=== PATIENT | male | born 1960 | race Caucasian/White ===

== ENCOUNTER → 2020-04-10 | Outpatient (CLI) | payer OTHER ==
[2020-04-10 12:12] LABS: BASOPHILS # (AUTO) 0.09 x10^3/uL (0-0.1); BASOPHILS % (AUTO) 1 % (0-1); EOSINOPHILS # (AUTO) 0.07 x10^3/uL (0-0.4); EOSINOPHILS % (AUTO) 1 % (1-7); LYMPHOCYTES # (AUTO) 1.73 x10^3/uL (1-3.4); LYMPHOCYTES % (AUTO) 20 % (22-44); MD NO; MEAN PLATELET VOLUME 7.5 fL (7.4-10.4); MONOCYTES # (AUTO) 1.04 x10^3/uL (0.2-0.8); MONOCYTES % (AUTO) 12 % (2-9); NEUTROPHILS # (AUTO) 5.56 x10^3/uL (1.8-6.8); NEUTROPHILS % (AUTO) 66 % (42-75); PLATELET COUNT 203 x10^3/uL (130-400); RED BLOOD COUNT 5.45 x10^6/uL (4.38-5.82); RED CELL DISTRIBUTION WIDTH 12.3 % (9.4-14.8)
[2020-04-10 12:15] LABS: MICROSCOPIC INDICATED
[2020-04-10 12:19] LABS: INTERNATIONAL NORMALIZED RATIO 1.15 (0.93-1.1); PROTHROMBIN TIME 11.9 Seconds (9.6-11.5)
[2020-04-10 12:22] LABS: CHLORIDE 105 mmol/L (98-107)
[2020-04-10 12:27] LABS: ANION GAP 13 mmol/L (5-15); CALCIUM 9.4 mg/dL (8.5-10.1); CREATININE 0.96 mg/dL (0.7-1.3)
== END | disposition home or self-care (01) ==
LOC: RAD 11:45
PROVIDERS: ATTEND Anesthesiology
DX: Z01.89 Encounter for other specified special examinations (principal); Z51.81 Encounter for therapeutic drug level monitoring; R07.9 Chest pain, unspecified
CPT/HCPCS: 36415; 71046; 80048; 81001; 85025; 85610; 85730; 87086; 93005